=== PATIENT | female | born 1985 | race Caucasian/White ===

== ENCOUNTER 2017-01-26 10:22 | Inpatient (IN) | payer MEDICARE, MEDICAID ==
[~2017-01-26] VITALS: Ht 165.1 cm; Wt 99.5 kg
[~2017-01-26 10:22] MED LIST: IBU600 MG PO; IRON325 MG; PERCOCET 325 MG1 TA2 PO; PRENATAL MVI; VITAMIN D1000 IU
[2017-03-18] VITALS (58 sets, daily range): BP systolic 103–137; BP diastolic 52–78; PULSE 62–91; TEMP 97.6–98.9
[2017-03-18 08:34] LABS: BASO % 0.3 % (0.0-2.0); EOS # 0.1 (0.0-0.7); EOS % 0.7 % (0-4.0); GRAN # 7.5 (1.4-6.5); GRAN % 72.1 % (42.2-75.2); LYMPH # 2.3 (1.2-3.4); LYMPH % 21.8 % (20.0-51.0); MEAN CELL VOLUME 88 fl (80.0-100.0); MEAN CORPUSCULAR HGB CONC 33 g/dl (33.0-37.0); MEAN PLATELET VOLUME 10.8 fl (7.4-10.4); MONO # 0.5 (0.1-0.6); MONO % 4.4 % (1.7-9.3); PLATELET COUNT 180 K/mm3 (130-400); RED BLOOD COUNT 4.11 M/mm3 (4.10-5.30); REDCELL DISTRIBUTION WIDTH-CV 15.1 % (11.5-14.5); WHITE BLOOD COUNT 10.4 K/mm3 (4.8-10.8)
[2017-03-18 08:37] LABS: HEMOGLOBIN 11.7 g/dl (12.5-16.0); MEAN CORPUSCULAR HEMOGLOBIN 28 pg (27.0-31.0)
[2017-03-19 01:00] VITALS: BP 110/68; PULSE 100; TEMP 98.5
[2017-03-19 05:00] VITALS: BP 97/45; PULSE 75; TEMP 97.5
[2017-03-19 07:05] VITALS: BP 107/75; PULSE 84; TEMP 97
[2017-03-19 09:27] LABS: HEMATOCRIT 34.2 % (37.0-47.0); HEMOGLOBIN 11.2 g/dl (12.5-16.0)
[2017-03-19 16:04] VITALS: BP 126/76; PULSE 76; TEMP 98.1
[2017-03-19 19:30] VITALS: BP 117/71; BP 124/61; PULSE 78; PULSE 86; TEMP 97.5; TEMP 97.7
[2017-03-20 08:56] VITALS: BP 99/49; PULSE 68; TEMP 98
[2017-03-20] MEDS ORDERED: PERCOCET 325 MG1 TA2 PO (09:04)
[2017-03-20] MEDS ORDERED: IBU600 MG PO (09:04)
== END 2017-03-20 13:00 | disposition home or self-care (01) | DRG 775 ==
LOC: LDR 03-18 06:38 → OB 03-18 23:30 → EDSTATUS 03-20 06:36 → LDRO 03-20 10:22 → OB 03-20 13:00
PROVIDERS: Obstetrics & Gynecology
PROC: 10E0XZZ Delivery of Products of Conception, External Approach (ICD-10-PCS; principal; 2017-03-18)
PROC: 0KQM0ZZ Repair Perineum Muscle, Open Approach (ICD-10-PCS; 2017-03-18)
DX: O34.13 Maternal care for benign tumor of corpus uteri, third trimester (principal); E70.30 Albinism, unspecified; D25.9 Leiomyoma of uterus, unspecified; O99.284 Endocrine, nutritional and metabolic diseases complicating childbirth; O99.89 Other specified diseases and conditions complicating pregnancy, childbirth and the puerperium; H54.8 Legal blindness, as defined in USA; O70.1 Second degree perineal laceration during delivery; Z3A.39 39 weeks gestation of pregnancy; Z37.0 Single live birth
CPT/HCPCS: J1200; J2590; J7120

== ENCOUNTER 2019-04-29 13:19 | Emergency (ER) | payer MEDICARE ==
[~2019-04-29] VITALS: Ht 165.1 cm; Wt 84.1 kg
[2019-04-29 13:39] VITALS: BP 123/72
[2019-04-29 14:55] VITALS: PULSE 59; TEMP 97.9
== END 2019-04-29 14:55 | disposition home or self-care (01) ==
LOC: COL.ER 13:19
DX: S06.0X0A Concussion without loss of consciousness, initial encounter (principal); F32.9 Major depressive disorder, single episode, unspecified; F41.9 Anxiety disorder, unspecified; W00.0XXA Fall on same level due to ice and snow, initial encounter; Y92.009 Unspecified place in unspecified non-institutional (private) residence as the place of occurrence of the external cause

== ENCOUNTER → 2022-08-26 | Outpatient (CLI) | payer MEDICARE | LOC: COL.VAS 12:47 | DX: R06.02 Shortness of breath (principal) ==

== ENCOUNTER 2024-01-08 13:22 | Emergency (ER) | payer MEDICARE ==
[~2024-01-08] VITALS: Ht 165.1 cm; Wt 86.4 kg
[2024-01-08 13:25] VITALS: TEMP 98.1
[2024-01-08] MEDS ORDERED: cefTRIAXone 1 G in Water For Injection,Sterile 10 ML IV ONE (14:15)
[2024-01-08] MEDS ORDERED: NS 1,000 ML IV ONE (14:15)
[2024-01-08] MEDS ORDERED: Ondansetron 4 MG/2 ML VIAL IV ONE (14:15)
[2024-01-08 15:15] VITALS: BP 106/69; PULSE 77
[2024-01-08] MEDS ORDERED: ZOFRAN ODT4 MG PO (15:15)
[2024-01-08] MEDS ORDERED: CEFTIN500 MG PO (15:15)
== END 2024-01-08 15:40 | disposition home or self-care (01) ==
LOC: COL.ER 13:22
DX: N39.0 Urinary tract infection, site not specified (principal)
CPT/HCPCS: J0696; J2405; J7030